=== PATIENT | female | born 1970 | race Hispanic/Latino ===

== ENCOUNTER 2017-05-01 16:28 | Emergency (ER) | payer MEDICAID ==
[2017-05-01] MEDS ORDERED: NITROGLYCERIN 1GM/1 INCH PACKET TD ONE (16:30)
[2017-05-01 16:54] LABS: BASOPHILS % (AUTO) 0.9 % (0.0-5.0); EOSINOPHILS % (AUTO) 2.4 % (0.0-8.0); HEMATOCRIT 30.8 % (36-48); LYMPHOCYTES % (AUTO) 20.4 % (21.0-51.0); MEAN CORPUSCULAR HEMOGLOBIN 27.5 pg (27.0-33.0); MEAN CORPUSCULAR HGB CONC 33.7 g/dL (32.0-36.0); MEAN CORPUSCULAR VOLUME 81.8 fL (79-99); NEUTROPHILS % (AUTO) 65.3 % (40.0-77.0); PLATELET COUNT (AUTO) 370 K/uL (130-400); RED BLOOD CELL COUNT(AUTO) 3.76 MIL/uL (4.00-5.50); RED CELL DISTRIBUTION WIDTH 15.9 % (11.0-15.5); WHITE BLOOD COUNT (AUTO) 10.2 K/uL (4.8-10.8)
[2017-05-01 17:01] LABS: CREATININE 0.7 mg/dL (0.5-1.5); POTASSIUM 4.3 mmol/L (3.5-5.1)
[2017-05-01 17:02] LABS: INR 0.92 (0.85-1.15); PARTIAL THROMBOPLASTIN TIME 27.9 SEC (26.3-35.5); PROTHROMBIN TIME 9.7 SEC (9.6-11.6)
[2017-05-01 17:15] LABS: ALBUMIN 2.8 g/dL (3.5-5.0); BILIRUBIN,TOTAL 0.1 mg/dL (0.2-1.0); CREATINE KINASE MB 0.8 ng/mL (0.5-3.6); TOTAL PROTEIN, SERUM 6.5 g/dL (6.0-8.3)
[2017-05-01 21:41] LABS: AMPHET/METH SCREEN,URINE NEGATIVE (NEGATIVE); BARBITURATE SCREEN, URINE NEGATIVE (NEGATIVE); BENZODIAZEPINES SCREEN,URINE NEGATIVE (NEGATIVE); CANNABINOID SCREEN,URINE NEGATIVE (NEGATIVE); COCAINE SCREEN,URINE NEGATIVE (NEGATIVE); OPIATE SCREEN,URINE NEGATIVE (NEGATIVE); PHENCYCLIDINE SCREEN,URINE NEGATIVE (NEGATIVE)
== END 2017-05-02 00:30 | disposition home or self-care (01) ==
LOC: EDH 16:28
DX: R07.89 Other chest pain (principal); G89.29 Other chronic pain; M54.5 Low back pain; F41.9 Anxiety disorder, unspecified; K76.0 Fatty (change of) liver, not elsewhere classified; Z79.899 Other long term (current) drug therapy
CPT/HCPCS: 36415; 71045; 80053; 80305; 82550; 82553; 83874; 84484; 85025; 85610; 85730; 93005; 94761

== ENCOUNTER 2017-11-10 03:25 | Emergency (ER) | payer MEDICAID ==
[2017-11-10] MEDS ORDERED: AMOXICILLIN/POTASSIUM CLAV 500-125 TABLET PO ONE (03:50)
[2017-11-10] MEDS ORDERED: TETANUS/DIPHTHERIA TOXOID [ADULT] 0.5 ML VIAL IM ONE (03:51)
== END 2017-11-10 04:57 | disposition home or self-care (01) ==
LOC: EDH 03:25
DX: S61.451A Open bite of right hand, initial encounter (principal); F41.9 Anxiety disorder, unspecified; F32.9 Major depressive disorder, single episode, unspecified; Z98.890 Other specified postprocedural states; W55.01XA Bitten by cat, initial encounter; Y93.89 Activity, other specified; Y92.89 Other specified places as the place of occurrence of the external cause; Y99.8 Other external cause status
CPT/HCPCS: 90471; 90714

== ENCOUNTER 2018-12-11 06:24 | Day surgery (SDC) | payer MEDICAID ==
[~2018-12-11] VITALS: Ht 165.1 cm; Wt 90.7 kg
[~2018-12-11 06:24] MED LIST: SODIUM CHLORIDE 0.9% 1000ML 1,000 ML IV ONE
[2018-12-11 07:40] VITALS: BP 120/76
[2018-12-11 09:19] VITALS: BP 123/65
[2018-12-11 09:24] VITALS: BP 127/69
[2018-12-11 09:29] VITALS: BP 132/75
[2018-12-11] MEDS ORDERED: LEVOFLOXACIN 750 MG/D5W 150 ML 150 ML IV SCH (09:30)
[2018-12-11 09:34] VITALS: BP 127/67
[2018-12-11 09:39] VITALS: BP 125/70
--- NOTE | 2018-12-11 10:23 | NUR ---
CHRISTINA MENDES RN BROUGHT PT OVER TO DEPARTMENT AT 1023AM, PT RUNNING ANTIBIOTIC AND PENDING TO SEE MD , PT TOLERATED WELL NO REACTION TO MEDICATIONS, GAVE DISCHARGE INSTRUCTIONS TO PT AND REMOVED IV, AND ANTHONY MARIE FROM GI CAME TO GET PT t 1104 AND TAKE TO GI UNIT SO MD COULD SPEAK TO HER. NO CONCERNS VOICED.
--- NOTE | 2018-12-11 10:23 | NUR ---
PATIENT TRANSFERRED TO DAY PATIENT ROOM 3 VIA STRETCHER. PATIENT [id number], RESPIRATIONS UNLABORED, VITAL SIGNS STABLE. REPORT GIVEN TO ROSENDO CAREY RN USING SBAR, ALL QUESTIONS/CONCERNS ADDRESSED.
== END 2018-12-11 11:53 | disposition home or self-care (01) ==
LOC: DAH 06:24 → ENDO 06:24
PROVIDERS: ATTEND Internal Medicine
DX: R19.7 Diarrhea, unspecified (principal); C25.1 Malignant neoplasm of body of pancreas; K82.8 Other specified diseases of gallbladder; D50.9 Iron deficiency anemia, unspecified; K44.9 Diaphragmatic hernia without obstruction or gangrene; N92.0 Excessive and frequent menstruation with regular cycle; F41.9 Anxiety disorder, unspecified; F32.9 Major depressive disorder, single episode, unspecified; K64.0 First degree hemorrhoids; Z79.899 Other long term (current) drug therapy; M19.90 Unspecified osteoarthritis, unspecified site; Z90.710 Acquired absence of both cervix and uterus; Z98.890 Other specified postprocedural states
CPT/HCPCS: 43238; 88173; 88305; A4215 ×2; A4221; A4222; A4223; A4606; A4615; A4663; J1956; J7030

== ENCOUNTER 2019-01-08 07:43 | Day surgery (SDC) | payer MEDICAID ==
[~2019-01-08] VITALS: Ht 165.1 cm; Wt 88.0 kg
[2019-01-08 08:48] VITALS: BP 126/75
[2019-01-08 09:49] VITALS: BP 107/55
[2019-01-08 09:54] VITALS: BP 107/67
[2019-01-08 09:59] VITALS: BP 114/64
[2019-01-08 10:04] VITALS: BP 110/74
== END 2019-01-08 10:25 | disposition home or self-care (01) ==
LOC: DAH 07:43 → ENDO 07:43
PROVIDERS: ATTEND Internal Medicine
DX: K62.5 Hemorrhage of anus and rectum (principal); K64.1 Second degree hemorrhoids; K60.2 Anal fissure, unspecified; F32.9 Major depressive disorder, single episode, unspecified; F41.9 Anxiety disorder, unspecified; M19.90 Unspecified osteoarthritis, unspecified site; C25.1 Malignant neoplasm of body of pancreas; D50.9 Iron deficiency anemia, unspecified; K62.89 Other specified diseases of anus and rectum; K44.9 Diaphragmatic hernia without obstruction or gangrene; K86.81 Exocrine pancreatic insufficiency; N92.0 Excessive and frequent menstruation with regular cycle; Z98.890 Other specified postprocedural states; Z79.899 Other long term (current) drug therapy
CPT/HCPCS: 45331; 88305; A4215; A4221; A4222; A4606; A4615; A4663; J7030; 43247

== ENCOUNTER → 2021-11-10 | Outpatient (CLI) | payer OTHER, MEDICARE ==
[2021-11-10 12:50] LABS: THYROID STIMULATING HORMONE 1.62 uIU/mL (0.36-3.74)
== END | disposition home or self-care (01) ==
LOC: LAB 09:45
PROVIDERS: ATTEND Internal Medicine
DX: E78.5 Hyperlipidemia, unspecified (principal); I95.9 Hypotension, unspecified
CPT/HCPCS: 36415; 84439; 84443

== ENCOUNTER → 2021-11-25 | Outpatient (CLI) | payer OTHER, MEDICARE | END | disposition home or self-care (01) | LOC: SHCH 13:20 | PROVIDERS: ATTEND Internal Medicine | DX: I08.8 Other rheumatic multiple valve diseases (principal); I31.3 Pericardial effusion (noninflammatory); I95.1 Orthostatic hypotension; M48.02 Spinal stenosis, cervical region; C25.9 Malignant neoplasm of pancreas, unspecified | CPT/HCPCS: 93306 ==

== ENCOUNTER → 2022-04-06 | Outpatient (CLI) | payer OTHER, MEDICARE | END | disposition home or self-care (01) | LOC: SHCH 15:29 | PROVIDERS: ATTEND Internal Medicine Cardiovascular Disease | DX: I95.1 Orthostatic hypotension (principal) | CPT/HCPCS: 93306 ==